=== PATIENT | male | born 1960 | race Caucasian/White ===

== ENCOUNTER → 2018-03-29 | Outpatient (CLI) | payer OTHER | LOC: FIMAGING 09:23 | PROVIDERS: ATTEND Physical Medicine & Rehabilitation | DX: M51.86 Other intervertebral disc disorders, lumbar region (principal); M25.811 Other specified joint disorders, right shoulder; M25.812 Other specified joint disorders, left shoulder; Z98.1 Arthrodesis status | CPT/HCPCS: 78306; A9503 ==